=== PATIENT | male | born 1985 | race Caucasian/White ===

== ENCOUNTER 2016-12-21 19:05 | Emergency (ER) | payer SELFPAY ==
--- NOTE | ~2016-12-21 | ER ---
PATIENT'S NAME: MATTEO HOWARD [facility] AGE: 31 Y [address] ROOM: [place] [address] LOCATION: ED ADMIT DATE: 12/21/2016 ER/Outpatient Report DISCHARGE DATE: 12/21/2016 FAMILY PHYSICIAN: Physician, Unknown ATTENDING PHYSICIAN: Jared Montanez TIME OF ARRIVAL: 1805. TIME OF EVALUATION: 1905. CHIEF COMPLAINT: Medical clearance. HISTORY OF PRESENT ILLNESS: The patient is a 31-year-old male who presents to the emergency department today under the custody of [employer] with the chief complaint of medical clearance of right upper leg pain. He reports that 20 minutes prior to arrival, the patient was being arrested. He was kneed in the right upper thigh and his face was put to the ground. The patient is tearful and agitated, but the cooperates with the assessment and questioning. He reports he is able to ambulate. He reports sharp pain, it is currently mild in severity. He is just concerned about getting the report because he would like to file an excessive force charges against the officers. He denies any loss of consciousness. No nausea or vomiting. No other chest pain. No shortness of breath. No headache. PAST MEDICAL HISTORY: None. PAST SURGICAL HISTORY: None. SOCIAL HISTORY: The patient smokes. Denies any alcohol. Does report marijuana use today as well as methamphetamines 3 to 4 days ago. ALLERGIES: NO KNOWN DRUG ALLERGIES. MEDICATIONS: None. PRIMARY CARE DOCTOR: PATIENT'S NAME: MATTEO HOWARD [facility] AGE: 31 Y [address] ROOM: [place] [address] LOCATION: [facility] ADMIT DATE: 12/21/2016 ER/Outpatient Report DISCHARGE DATE: 12/21/2016 FAMILY PHYSICIAN: , Unknown ATTENDING PHYSICIAN: Jared Montanez None. REVIEW OF SYSTEMS: All systems are reviewed by myself and negative with the exception of those discussed in HPI and past medical history. PHYSICAL EXAMINATION: VITAL SIGNS: Blood pressure 140/80, pulse 107, respiratory rate 24, temperature 98.7, and oxygen saturation 98% on room air. GENERAL: The patient 31-year-old male, appears stated age, in no acute distress at this time. HEENT: Head is normocephalic. Does have a superficial abrasion to the left cheek. There are no lacerations. Pupils are equal, round, and reactive to light and accommodation. Extraocular motions are intact. Nares are patent bilaterally. TMs are clear. Oropharynx is clear. NECK: Supple. There is no nuchal rigidity. CARDIOVASCULAR: Tachycardic. No murmurs, rubs, or gallops. LUNGS: Clear to auscultation bilaterally. No wheezes, rales, or rhonchi. ABDOMEN: Soft, nontender, and nondistended. No rebound, rigidity, or guarding. MUSCULOSKELETAL: The patient moves all 4 extremities. 5/5 muscle strength. 2/4 pulses, DP and PT pulse. SKIN: The patient's right upper thigh is evaluated. I see no evidence of contusion noted. No other evidence of contusion, hematoma, or bruising noted. IMPRESSION: 1. Medical clearance. 2. Right upper thigh contusion. 3. Superficial abrasion, left cheek. 4. Initial visit. EMERGENCY DEPARTMENT COURSE: The patient was brought back to the examination room. Seen and evaluated by myself. History and physical performed as described by myself. I have discussed results with the patient of my examination and I do feel he is safe for medical clearance at this time. I have asked to follow up with his primary care doctor in 2 to 3 days for reevaluation. DISPOSITION: The patient is discharged under the custody of [employer] in stable condition. PATIENT'S NAME: MATTEO HOWARD [facility] AGE: 31 Y [address] ROOM: [place] [address] LOCATION: [facility] ADMIT DATE: 12/21/2016 ER/Outpatient Report DISCHARGE DATE: 12/21/2016 FAMILY PHYSICIAN: Physician, Unknown ATTENDING PHYSICIAN: Jared Montanez DO KJR/luana /[id number] d: 12/22/16 0019 t: 05/10/17 0433, OUTPATIENT REPORT
== END 2016-12-21 19:16 | disposition disaster alternative care site (69) ==
LOC: GMED 19:05
DX: S70.11XA Contusion of right thigh, initial encounter (principal); S00.81XA Abrasion of other part of head, initial encounter; F17.210 Nicotine dependence, cigarettes, uncomplicated; X58.XXXA Exposure to other specified factors, initial encounter

== ENCOUNTER 2017-01-23 09:59 | Emergency (ER) | payer SELFPAY ==
--- NOTE | ~2017-01-23 | ER ---
PATIENT'S NAME: MATTEO HOWARD [facility] AGE: 31 Y [address] ROOM: [place] [address] LOCATION: ED ADMIT DATE: 01/23/2017 ER/Outpatient Report DISCHARGE DATE: 01/23/2017 FAMILY PHYSICIAN: PHYSICIAN, NO ATTENDING PHYSICIAN: Siva Ureña TIME SEEN: 1005 hours. HISTORY OF PRESENT ILLNESS: The patient is a 31-year-old male, who presents with vomiting and diarrhea. He said last night, he had a couple of loose stools. Also, one this morning then he had a couple of emesis. Denied any fever, chills, or abdominal pain. ALLERGIES: NONE. CURRENT MEDICATIONS: None. PAST MEDICAL HISTORY: No chronic diseases such as diabetes, colitis, or other peptic ulcer disease. PAST SURGICAL HISTORY: None. SOCIAL HISTORY: History of meth use. Said he has been clean for a few weeks, works at [employer]. He says he is living in a motel on [address]. REVIEW OF SYSTEMS: GENERAL: No fever or chills. HEENT: No complaints of headache, sore throat, dry mouth, or neck pain. RESPIRATORY: No shortness of breath or cough. CARDIOVASCULAR: No chest pain. GASTROINTESTINAL: Includes some loose stools and vomiting. No significant abdominal pain. GENITOURINARY: He has been voiding frequently. SKIN: No recent rash. OBJECTIVE FINDINGS: VITAL SIGNS: Reviewed. GENERAL: The patient looked in no acute distress. Alert and oriented. EYES: PERRLA. No icterus. NOSE: Septum midline. PATIENT'S NAME: MATTEO HOWARD [facility] AGE: 31 Y [address] ROOM: [place] [address] LOCATION: ED ADMIT DATE: 01/23/2017 ER/Outpatient Report DISCHARGE DATE: 01/23/2017 FAMILY PHYSICIAN: PHYSICIAN, NO ATTENDING PHYSICIAN: Siva Ureña MOUTH: Teeth in good repair. Oral membranes are moist and pink. LUNGS: Clear throughout. HEART: No tachycardia. ABDOMEN: Soft and nontender. SKIN: Warm and dry. ASSESSMENT: Vomiting and diarrhea. PLAN: Discussed doing lab work with the patient, and due to no insurance, I requested that at this time that we could forego the lab. Recommendations made is just to find a cool area today. Stomach rest for couple of hours then initiation of some Gatorade, small amounts at a time. No dairy products. Follow up in 24 hours if symptoms do not continue to improve. Again, no dairy products and Imodium AD [id number] if he wants. BAR BLACKBURN FOR MD JOSHUA BO/luana /[id number] d: 01/23/17 1413 t: 02/07/17 0700, OUTPATIENT REPORT
== END 2017-01-23 10:14 | disposition disaster alternative care site (69) ==
LOC: GMED 09:59
DX: R11.10 Vomiting, unspecified (principal); R19.7 Diarrhea, unspecified; Z88.8 Allergy status to other drugs, medicaments and biological substances